=== PATIENT | female | born 1935 | race Two or more races ===

== ENCOUNTER → 2020-03-11 | Outpatient (CLI) | payer MEDICARE ==
--- NOTE | 2020-03-11 11:28 | ER [facility] ASSESSMENT REPORT ---
Intake - In the Last 14 days Have you traveled outside [place]?: No Have you been in close contact with someone CONFIRMED: No Worked in Healthcare?: No - Symptoms Subjective Fever([place] feverish): Yes Chills: No Muscule Aches: No Runny Nose: Yes Sore Throat: No Cough (New or worsening chronic cough): Yes Shortness of breath: No Nausea or Vomiting: No Headache: No Abdominal Pain: No Diarrhea(3 or more loose stools in last 24 hours): No - Do you have any of the following Chronic lung disease: Asthma or emphysema or COPD: Yes Chronic Lung Disease Comment: asthma Cystic Fibrosis: No Diabetes: Yes High Blood Pressure: Yes Cardiovascular Disease: No Chronic Kidney Disease: No Chronic Liver Disease: No Chronic blood disorder like Sickle Cell Disease: No Weak immune system due to disease or medication: No Neurologic condition that limits movement: No Developmental delay - Moderate to Severe: No Recent (within past 2 weeks) or current : No Morbid Obesity (>100 pounds over ideal weight): No - Objective Temperature: 98.7 F Pulse Rate: 80 Respiratory Rate: 18 Blood Pressure: 139/62 O2 Sat by Pulse Oximetry: 91 Objective: Given above, testing performed: If Testing Performed: Test Specimen Type Sent to General - General Mode of Arrival: Ambulatory Information source: Patient, Relative Notes: Patient presents to the [facility] for screening for the coronavirus. Patient reports fever, runny nose and cough for the past 4 days. - Related Data Allergies/Adverse Reactions: No Known Allergies Allergy (Unverified 07/13/14 11:41) Past Medical History - General Information source: Patient, Relative - Social History Smoking Status: Never Smoker Family History: Reviewed & Not Pertinent - Past Medical History Cardiac Medical History: Reports: Hx Hypercholesterolemia, Hx Hypertension Pulmonary Medical History: Reports: Hx Asthma, Hx COPD Neurological Medical History: Reports: Hx Cerebrovascular Accident Endocrine Medical History: Reports: Hx Hypothyroidism Past Surgical History: Reports: Hx Cholecystectomy, Hx Herniorrhaphy Physical Exam - Notes Notes: The patient was evaluated during the global Covid 19 pandemic, and that diagnosis was suspected/considered upon their initial presentation. Their evaluation, treatment and testing was consistent with current guidelines for pat ients who present with complaints or symptoms that may be related to Covid 19. Full physical exam could not be performed due to covid 19 isolation protocols. Constitutional: Nontoxic appearance, no acute distress Eyes: Nonicteric, extraocular movements intact, sclera clear Cardiovascular: Heart rate and rhythm regular, no JVD Respiratory: Breath sounds clear bilaterally, nonlabored breathing, no use of accessory muscles, no tachypnea Gastrointestinal: Abdomen not distended Muculoskeletal: Moves all extremities well, normal gait Skin: Normal color Neuro: Awake alert oriented, normal speech Psych: Normal mood and affect Diagnostic Results Laboratory Results: Patient presents with upper respiratory symptoms worrisome for possible Covid 19. Patient does not have emergency worrying symptoms such as difficulty breathing, shortness of breath, chest pain, pressure, confusion or cyanosis. Patient appears suitable for discharge as vital signs are stable and patient is nontoxic in appearance. Good return precautions have been discussed with patient, patient verbalized understanding and is agreeable with discharge plan of care at this time. Patient Education/Counseling Counseling/Education: Patient was provided with discharge information including: As a person under investigation for Covid 19, the [facility], division of public health advises you to adhere to the following guidance until your test results are reported to you. If your test result is positive, you will receive additional information from your provider and your local health department at that time. Remain at home until you are cleared by the health provider or public health authorities. Keep a log of visitors to your home, notify any visitors to your home of your isolation status. If you plan to move to a new address or leave the county, notify the local health department in your County. Call your doctor or seek care if you have an urgent medical need. Before seeking medical care, call ahead to get instructions from the provider before arriving at the medical office clinic or hospital. Notify them that you are being tested for the virus that causes Covid 19 so that arrangements can be made, as necessary, to prevent transmission to others in the healthcare setting. Next, notify the local health department in your county. If a medical emergency arises and you need to call 911, inform the first responders that you are being tested for the virus that causes Covid 19. Next, notify the local health department in your county. [facility] Discharge - Discharge Clinical Impression: Encounter for screening laboratory testing for COVID-19 virus Condition: Stable Disposition: Home; Selfcare
[2020-03-11 11:29] VITALS: BP 139/62
[2020-03-11 13:37] LABS: A TYPE INFLUENZA AG NEGATIVE (NEGATIVE); B INFLUENZA AG NEGATIVE (NEGATIVE)
--- OUTSIDE RECORDS SUMMARY | 2020-03-12 15:21 | XMS REPORT ---
:1935 [facility] Address [address] [address] Care Team Providers Name Role Phone Unavailable Unavailable Unavailable Allergies, Adverse Reactions, Alerts This patient has no known allergies or adverse reactions. Medications Ordered Filled Start Stop Current Ordering Indication Dosage Frequency Signature Comments Components Medication Medication Date Date Medication? Clinician (SIG) Name Name albuterol No 2puff(s Q4H albuterol sulf 90 ) sulf 90 mcg/actuati mcg/actuat on breath ion breath activated activated powder powder inhaler,sen inhaler,se sor Inhale nsor 2 puffs Inhale 2 every 4 puffs hours by every 4 inhalation hours by route as inhalation needed. route as needed. Calcium 600 No 1 Q1D Calcium + D(3) 600 600 + D(3) mg (1,500 600 mg mg)-400 (1,500 unit tablet mg)-400 Take 1 unit tablet tablet every day Take 1 by oral tablet route. every day by oral route. carvedilol No 1 Q1D carvedilol 12.5 mg 12.5 mg tablet Take tablet 1 tablet Take 1 every day tablet by oral every day route. by oral route. cetirizine No 1 Q1D cetirizine 5 mg tablet 5 mg Take 1 tablet tablet Take 1 every day tablet by oral every day route for by oral 30 days. route for 30 days. escitalopra No 1 Q1D escitalopr m 5 mg am 5 mg tablet Take tablet 1 tablet Take 1 every day tablet by oral every day route. by oral route. levothyroxi No 1 Q1D levothyrox ne 50 mcg ine 50 mcg tablet Take tablet 1 tablet Take 1 every day tablet by oral every day route. by oral route. losartan No 1 Q1D losartan 100 mg 100 mg tablet Take tablet 1 tablet Take 1 every day tablet by oral every day route. by oral route. metformin No 1 Q1D metformin ER 500 mg ER 500 mg tablet,exte tablet,ext nded ended release 24 release 24 hr Take 1 hr Take 1 tablet tablet every day every day by oral by oral route. route. Prolia 60 No Prolia 60 mg/mL mg/mL subcutaneou subcutaneo s syringe us syringe INJECT 1 INJECT 1 MILLILITER MILLILITER (60 MG) BY (60 MG) BY SUBCUTANEOU SUBCUTANEO S ROUTE US ROUTE EVERY 6 EVERY 6 MONTHS IN MONTHS IN THE UPPER THE UPPER ARM, UPPER ARM, UPPER THIGH OR THIGH OR ABDOMEN ABDOMEN rosuvastati No 1 Q1D rosuvastat n 20 mg in 20 mg tablet Take tablet 1 tablet Take 1 every day tablet by oral every day route. by oral route. Symbicort No 1puff(s BID Symbicort 80 mcg-4.5 ) 80 mcg-4.5 mcg/actuati mcg/actuat on HFA ion HFA aerosol aerosol inhaler inhaler Inhale 1 Inhale 1 puff twice puff twice a day by a day by inhalation inhalation route for route for 30 days. 30 days. Tylenol No 2 Q8H Tylenol Arthritis Arthritis Pain 650 mg Pain 650 tablet,exte mg nded tablet,ext release ended Take 2 release tablets Take 2 every 8 tablets hours by every 8 oral route hours by as needed. oral route as needed. Vascepa 1 No 2capsul BID Vascepa 1 gram e(s) gram capsule capsule Take 2 Take 2 capsules capsules twice a day twice a by oral day by route for oral route 30 days. for 30 days. Problems Condition Condition Condition Status Onset Resolution Last Treatin g Comments Name Details Category Date Date Treatment Clinician Date Asthma Asthma Problem Active 2019-04 00:00: 00 Osteoarthri Osteoarthri Problem Active 2019-04 tis tis 05-03 00:00: 00 Dysphagia Dysphagia Problem Active 2019-04 00:00: 00 Incontinenc Incontinenc Problem Active 2019-04 e e 05-03 00:00: 00 Environment Environment Problem Active 2019-04 al allergy al Allergy 05-03 00:00: 00 Hypothyroid Hypothyroid Problem Active 2019-04 ism ism 05-03 00:00: 00 Type 2 Type 2 Problem Active 2019-04 diabetes Diabetes 05-03 mellitus Mellitus 00:00: 00 Hyperlipide Hyperlipide Problem Active 2019-04 buster buster 05-03 00:00: 00 Depressive Depressive Problem Active 2019-04 disorder Disorder 05-03 00:00: 00 Essential Essential Problem Active 2019-04 hypertensio Hypertensio 05-03 n n 00:00: 00 Seasonal Seasonal Problem Active 2019-04 allergy Allergy 05-03 00:00: 00 Not on file Not on file [id number] Procedures Procedure Date / Time Performed Performing Clinician Kenroy donohue Cholecystectomy 1989-04-30 00:00:00 Hernia Repair 1983-04-30 00:00:00 APPENDECTOMY 1979-04-30 00:00:00 Results This patient has no known results. Assessments Condition Name Status Diagnosis Date Treating Clinici an Essential hypertension Active 2020-03-03 13:25:40 Hyperlipidemia Active 2020-03-03 14:14:49 Osteoarthritis Active 2020-03-03 14:04:48 Type 2 diabetes mellitus Active 2020-03-03 14:21:11 Administration of influenza vaccine Active 2020-03-03 1 3:24:44 Seasonal allergy Active 2020-03-03 14:04:45 Asthma Active 2020-03-03 14:05:01 Hypothyroidism Active 2020-03-03 14:21:09 Depressive disorder Active 2020-03-03 14:25:12 Chronic diarrhea Active 2020-03-03 15:04:00 Encounters Start End Encounter Admission Attending Care Care Encounter Date/Time Date/Time Type Type Clinicians Facility Department ID 2020-03-10 2020-03-10 [facility] [id number] 00:00:00 00:00:00 2020-03-03 2020-03-03 [facility] [id number] 00:00:00 [facility]: [address] [place] [address], Ph. Plan of Treatment Planned Activity Planned Date Details Comments Future Scheduled Test [code = ] Future Scheduled Test [code = ] Future Scheduled Test [code = ] Future Appointment 2020-04-02 00:00:00 Ana Encarnacion, [address] [place] [address] Social History Smoking Status Start Date Stop Date Never Smoker Vital Signs Vital Name Observation Time Observation Value Comments BP Diastolic 2020-03-03 00:00:00 72 mm[Hg] Height 2020-03-03 00:00:00 62 [in_i] BMI (Body Mass Index) 2020-03-03 00:00:00 33.1 kg/m2 BP Systolic 2020-03-03 00:00:00 119 mm[Hg] Body Weight 2020-03-03 00:00:00 181 [lb_av] Hospital Discharge Instructions 1. Essential hypertension CBC w/ auto diff CMP, serum or plasma losartan 100 mg tablet carvedilol 12.5 mg tablet dash diet: care instructions high blood pressure: care instructions low sodium diet (2,000 milligram): care instructions 2. Hyperlipidemia Vascepa 1 gram caps ule rosuvastatin 20 mg tablet high cholesterol: care instructions high-fiber diet: care instructions statins: care instructions 3. Osteoarthritis arthritis: care instructions osteoarthritis: care instructions Calcium 600 + D(3) 600 mg (1,500 mg)-400 unit tablet Tylenol Arthritis Pain 650 mg tablet,extended release 4. Type 2 diabetes mellitus metformin ER 500 mg tablet,extended release 24 hr learning about type 2 diabetes type 2 diabetes: care instructions 5. Administration of influenza vaccine Flucelvax Quad 60 mcg (15 mcg x 4)/0.5 mL intramuscular susp influenza (flu) vaccine: care instructions 6. Seasonal allergy seasonal allergies: care instructions cetirizine 5 mg tablet 7. Asthma controlling your asthma: care instructions learning about asthma Symbicort 80 mcg-4.5 mcg/actuation HFA aerosol inhaler 8. Hypothyroidism TSH + free T4, serum hypothyroidism: care instructions levothyroxine 50 mcg tablet T3, free, serum or plasma 9. Depressive disorder escitalopram 5 mg tablet learning about mood disorders 10. Chronic diarrhea culture, stool O&P (ova & parasites), stool Cdiff DNA, qual, PCR Discussion Note Patient verbalized understanding and agreement with recommended care plan. All questions and concerns were addressed and answered adequately. Follow up visit will address dm, hypothyroidism, asthma, allergy
== END ==
LOC: RDC 10:58
PROVIDERS: ATTEND Nurse Practitioner Family
DX: U07.1 COVID-19 (principal); R50.9 Fever, unspecified; R05 Cough; R09.89 Other specified symptoms and signs involving the circulatory and respiratory systems; I10 Essential (primary) hypertension; J44.9 Chronic obstructive pulmonary disease, unspecified; E11.9 Type 2 diabetes mellitus without complications; E78.00 Pure hypercholesterolemia, unspecified; E03.9 Hypothyroidism, unspecified; Z86.73 Personal history of transient ischemic attack (TIA), and cerebral infarction without residual deficits
CPT/HCPCS: 87804; 99201; U0003; G0463; C9803; 87635